=== PATIENT | female | born 1980 | race Caucasian/White ===

== ENCOUNTER 2017-05-29 18:18 | Observation (INO) ==
[2017-05-29] MEDS ORDERED: SALINE FLUSH 10ml SYRINGE IVF PRN (18:30)
--- OUTSIDE RECORDS SUMMARY | 2017-05-29 19:30 | External Medical Summary ---
:1980 Author Organization [facility] Address [address], [place] [address] Care Team Providers Name Role Phone Anya Moss Unavailable Unavailable PROBLEMS Unknown Problems ALLERGIES Unknown Allergies SOCIAL HISTORY No smoking Hx information available PLAN OF CARE VITAL SIGNS MEDICATIONS Unknown Medications RESULTS No Results PROCEDURES No Known procedures IMMUNIZATIONS No Known Immunizations
--- OUTSIDE RECORDS SUMMARY | 2017-05-29 19:30 | External Medical Summary ---
:1980 Author Organization [facility] Address [address] [place] [address] Care Team Providers Name Role Phone Murphy Luiz Unavailable Unavailable PROBLEMS Type Condition ICD9-CM Code [id number] Code Onset Condition SNOMED Code Dates Status Problem Moderate episode F33.1 Active 397890651 of recurrent major depressive disorder Problem Anxiety F41.9 Active [id number] ALLERGIES Unknown Allergies SOCIAL HISTORY No smoking Hx information available PLAN OF CARE VITAL SIGNS MEDICATIONS Unknown Medications RESULTS No Results PROCEDURES No Known procedures IMMUNIZATIONS No Known Immunizations
--- OUTSIDE RECORDS SUMMARY | 2017-05-29 19:30 | External Medical Summary ---
:1980 Author Organization [facility] Address [address] [place] [address] Care Team Providers Name Role Phone Murphy Luiz Unavailable Unavailable PROBLEMS Type Condition ICD9-CM Code [id number] Code Onset Condition SNOMED Code Dates Status Problem Moderate episode F33.1 Active 707444384 of recurrent major depressive disorder Problem Anxiety F41.9 Active 17728523 ALLERGIES Unknown Allergies SOCIAL HISTORY No smoking Hx information available PLAN OF CARE VITAL SIGNS MEDICATIONS Unknown Medications RESULTS No Results PROCEDURES No Known procedures IMMUNIZATIONS No Known Immunizations
--- OUTSIDE RECORDS SUMMARY | 2017-05-29 19:30 | External Medical Summary ---
:1980 Author Organization [facility] Address [address], [place] [id number] Care Team Providers Name Role Phone Anya Moss Unavailable Unavailable PROBLEMS Unknown Problems ALLERGIES Unknown Allergies SOCIAL HISTORY No smoking Hx information available PLAN OF CARE VITAL SIGNS MEDICATIONS Unknown Medications RESULTS No Results PROCEDURES No Known procedures IMMUNIZATIONS No Known Immunizations
--- OUTSIDE RECORDS SUMMARY | 2017-05-29 19:30 | External Medical Summary ---
:1980 Author Organization [employer] Care Team Providers Name Role Celestino Collins Provider Role Unavailable Allergies No Known Allergies Problems No Known Problems Medications No Known Medications Results No Known Results Summary Purpose [employer] Submission
--- OUTSIDE RECORDS SUMMARY | 2017-05-29 19:30 | External Medical Summary ---
:1980 Author Organization [employer] Care Team Providers Name Role Celestino Collins Provider Role Unavailable Allergies, Adverse Reactions, Alerts Substance Reaction Event Type N.K.D.A. Info Not Available Non Drug Allergy Problems Problem Type Condition Code Onset Dates Condition Status Assessment Generalized anxiety disorder F41.1 Active Assessment Panic disorder with agoraphobia F40.01 Active Assessment Major depressive disorder, recurrent F33.1 Active episode, moderate Medications Medication Code System Code Instructions Start End Date Status Dosage Date Xanax NDC 93514-76 2 MG Orally Two 1 tablet 94-01 times daily Ambien CR NDC 88705-44 12.5 MG Orally 1 tablet at 21-31 Once a day bedtime as needed Hydrocodone-Matt NDC 69299-31 10-500 MG Orally 1 tablet as taminophen 72-10 Two times daily needed Effexor NDC 0 37.5 MG Orally 1 tablet Twice a day with food Duloxetine HCl NDC 74478-79 30 MG Orally Mar 29, capsule 43-56 once a day 2015 Procedures Procedure Coding System Code Date Office Visit, New Pt., Level 5 CPT-4 04549 Mar 29, 2016 Vital Signs Date/Time: Mar 29, 2016 Blood Pressure Systolic 133 mm Hg Weight 147.6 lbs Height 64 in BMI 25.33 Index Cardiac Monitoring Heart Rate 80 /min Blood Pressure Diastolic 87 mm Hg Results No Known Results Summary Purpose [employer] Submission
--- OUTSIDE RECORDS SUMMARY | 2017-05-29 19:30 | External Medical Summary | Referral Summary ---
:[address] [facility] Address [address] [place] [address] Care Team Providers Name Role Phone Ina Brady Primary Care Physician Encounter [facility] [id number] Date(s): 12/24/15 - 12/24/[address] [facility] [address], [place] [address] Discharge Diagnosis: Acute sciatica Discharge Diagnosis: Low back pain Discharge Disposition: 01-Home or Self Care Attending Physician: Kevin Kaba DO Admitting Physician: Kevin Kaba DO Vital Signs Most recent to oldest [Reference Range]: 1 Temperature Oral [35.8-37.3 degC] 37.3 degC (12/24/15 3:25 PM) Peripheral Pulse Rate [60-100 bpm] 87 bpm (12/24/15 4:34 PM) Respiratory Rate [14-20 br/min] 18 br/min (12/24/15 4:34 PM) Blood Pressure [90-140/60-90 mmHg] 120/88 mmHg (12/24/15 4:34 PM) SpO2 100 % (12/24/15 4:34 PM) Problem List Condition Effective Dates Status Health Status Informant Depression(Confirmed) Active patient Hypertension(Confirmed) Active patient Allergies, Adverse Reactions, Alerts No Known Allergies Medications hydrochlorothiazide Oral, Daily, 0 Refill(s) Start Date: 03/12/14 Status: OrderedNaprosyn 500 mg oral tablet 1 tabs, Oral, BID, as needed for pain, # 10 tabs, 0 Refill(s) Start Date: 03/12/14 Status: OrderedoxyCODONE-acetaminophen 5 mg-325 mg oral tablet 1 tabs, Oral, q6hr, Pain, X 3 days, # 12 tabs, 0 Refill(s) Start Date: 12/24/15 Stop Date: 12/27/15 Status: OrderedValium 5 mg oral tablet 5 mg 1 tabs, Oral, TID, Muscle Spasm, X 4 days, # 12 tabs, 0 Refill(s) Start Date: 12/24/15 Stop Date: 12/28/15 Status: Ordered Results No data available for this section Immunizations No data available for this section Procedures Procedure Date Related Diagnosis Body Site Hysterectomy Social History Social History Type Response Smoking Status Never smoker Assessment and Plan No data available for this section
--- OUTSIDE RECORDS SUMMARY | 2017-05-29 19:30 | External Medical Summary | Referral Summary ---
:1980 Author Organization [facility] Address [address] [place] [address] Care Team Providers Name Role Phone Ina Brady Primary Care Physician Encounter VC Date(s): 12/25/15 - 12/27/15 [facility] [address], [place] [address] Discharge Disposition: 01-Home or Self Care Attending Physician: Lee Lafleur MD Admitting Physician: Lee Lafleur MD Referring Physician: No PCP, Pt States Vital Signs Most recent to oldest [Reference Range]: 1 Temperature Oral [35.8-37.3 degC] 38.4 degC *HI* (12/25/15 10:49 PM) Temperature Temporal Artery [36.3-37.8 degC] 36.8 degC (12/27/15 11:00 AM) Peripheral Pulse Rate [60-100 bpm] 77 bpm (12/26/15 8:03 PM) Heart Rate Monitored [60-100 bpm] 77 bpm (12/27/15 11:00 AM) Respiratory Rate [14-20 br/min] 13 br/min *LOW* (12/27/15 11:00 AM) Blood Pressure [90-140/60-90 mmHg] 105/63 mmHg (12/27/15 11:00 AM) Mean Arterial Pressure, Cuff 87 mmHg (12/27/15 3:00 AM) SpO2 94 % (12/27/15 11:00 AM) Remote Telemetry Initiated (12/25/15 10:49 PM) Problem List Condition Effective Dates Status Health Status Informant Acute pain(Confirmed) Active Depression(Confirmed) Active patient Hypertension(Confirmed) Active patient Ineffective coping Active (individual)(Confirmed)1 1Problem added automatically by system based on initiation of Ineffective Coping Plan of Care Allergies, Adverse Reactions, Alerts No Known Allergies Medications ALPRAZolam 1 mg oral tablet 1 mg 1 tabs, Oral, Bedtime (once a day), 0 Refill(s) Start Date: 12/25/15 Status: Orderedesomeprazole 40 mg, Oral, Daily, 0 Refill(s) Start Date: 12/25/15 Status: Orderedferrous sulfate 325 mg (65 mg elemental iron) oral delayed release tablet 325 mg 1 tabs, Oral, TID, # 90 tabs, 0 Refill(s), other reason (Rx) Start Date: 12/27/15 Status: AywhvlnDdn-A-Phg Women 1 tabs, Oral, Daily, 0 Refill(s) Start Date: 12/25/15 Status: OrderedPercocet 10/325 oral tablet 1 tabs, Oral, q4hr, Pain Moderate (4-6), 0 Refill(s) Start Date: 12/27/15 Status: OrderedPristiq 100 mg oral tablet, extended release 100 mg 1 tabs, Oral, Daily, 0 Refill(s) Start Date: 12/25/15 Status: OrderedValium 5 mg oral tablet 5 mg 1 tabs, Oral, TID, Muscle Spasm, X 4 days, # 12 tabs, 0 Refill(s) Start Date: 12/24/15 Stop Date: 12/28/15 Status: Orderedzolpidem 10 mg, Oral, Bedtime (once a day), as needed for sleep, 0 Refill(s) Start Date: 12/25/15 Status: Ordered Results Hematology Most recent to oldest [Reference Range]: 1 WBC [4.8-10.8 10*3/uL] 3.8 10*3/uL *LOW* (12/27/15 3:57 AM) RBC [4.00-5.20] 3.03 *LOW* (12/27/15 3:57 AM) Hgb [12.0-16.0 gm/dL] 8.0 gm/dL *LOW* (12/27/15 3:57 AM) Hct [37.0-47.0 %] 26.4 % *LOW* (12/27/15 3:57 AM) MCV [82.0-99.0 fL] 87.1 fL (12/27/15 3:57 AM) MCH [27.0-32.0 pg] 26.4 pg *LOW* (12/27/15 3:57 AM) MCHC [32.0-36.0 gm/dL] 30.3 gm/dL *LOW* (12/27/15 3:57 AM) RDW [11.5-14.5 %] 17.0 % *HI* (12/27/15 3:57 AM) Platelet [150-400 10*3/uL] 219 10*3/uL (12/27/15 3:57 AM) MPV [9.4-12.4 fL] 10.5 fL (12/27/15 3:57 AM) Immature Granulocytes [0.0-1.0 %] 0.1 % (12/26/15 6:01 AM) Neutrophils [51-75 %] 63 % (12/26/15 6:01 AM) Lymphocytes [20-46 %] 25 % (12/26/15 6:01 AM) Monocytes [4-11 %] 9 % (12/26/15 6:01 AM) Eosinophils [0-4 %] 3 % (12/26/15 6:01 AM) Basophils [0-2 %] 0 % (12/26/15 6:01 AM) Neutro Absolute [1.90-7.00 10*3] 4.26 10*3 (12/26/15 6:01 AM) Lymph Absolute [0.80-3.30 10*3] 1.66 10*3 (12/26/15 6:01 AM) [place] Absolute [0.30-1.00 10*3] 0.62 10*3 (12/26/15 6:01 AM) Eos Absolute [0.00-0.50 10*3] 0.18 10*3 (12/26/15 6:01 AM) Baso Absolute [0.00-0.20 10*3] 0.01 10*3 (12/26/15 6:01 AM) Reticulocyte [0.6-2.5 %] 1.3 % (12/25/15 6:09 PM) Sed Rate [0-23] 13 (12/25/15 6:09 PM) Chemistry Most recent to oldest [Reference Range]: 1 Sodium Lvl [136-144 mEq/L] 141 mEq/L (12/27/15 3:57 AM) Potassium Lvl [3.6-5.1 mEq/L] 4.2 mEq/L (12/27/15 3:57 AM) Chloride [99-109 mEq/L] 117 mEq/L *HI* (12/27/15 3:57 AM) CO2 [22-32 mEq/L] 22 mEq/L (12/27/15 3:57 AM) AGAP [3-20] 2 *LOW* (12/27/15 3:57 AM) BUN [4-20 mg/dL] 5 mg/dL (12/27/15 3:57 AM) Glucose Lvl [70-100 mg/dL] 85 mg/dL (12/27/15 3:57 AM) Creatinine Lvl [0.44-1.03 mg/dL] 0.38 mg/dL *LOW* (12/27/15 3:57 AM) eGFR [>60] >60 1 (12/27/15 3:57 AM) Calcium Lvl [8.6-10.0 mg/dL] 7.6 mg/dL *LOW* (12/27/15 3:57 AM) Albumin Lvl [3.5-4.8 gm/dL] 2.1 gm/dL *LOW* (12/27/15 3:57 AM) Total Protein [6.1-7.9 gm/dL] 4.2 gm/dL *LOW* (12/26/15 6:01 AM) Globulin [1.9-4.3 gm/dL] 2.0 gm/dL (12/26/15 6:01 AM) ALT [14-54 U/L] 44 U/L (12/26/15 6:01 AM) AST [15-41 U/L] 69 U/L *HI* (12/26/15 6:01 AM) Alk Phos [26-104 U/L] 63 U/L (12/26/15 6:01 AM) Bili Total [0.2-1.2 mg/dL] 0.4 mg/dL 2 (12/26/15 6:01 AM) Iron [50-170 mcg/dL] 18 mcg/dL *LOW* (12/25/15 11:59 PM) TIBC [286-569 mcg/dL] 252 mcg/dL *LOW* (12/25/15 11:59 PM) Iron Sat 7 % (12/25/15 11:59 PM) Transferrin [192-382 mg/dL] 169 mg/dL *LOW* (12/25/15 11:59 PM) Ferritin Lvl [11-307 ng/mL] 11 ng/mL (12/25/15 6:09 PM) Magnesium Lvl [1.8-2.5 mg/dL] 1.9 mg/dL (12/27/15 3:57 AM) Phosphorus [2.4-4.7 mg/dL] 2.6 mg/dL 3 (12/27/15 3:57 AM) Calcium Ionized [1.19-1.41 mmol/L] 1.17 mmol/L *LOW* (12/26/15 6:01 AM) Total CK [38-234 U/L] 1862 U/L *HI* (12/27/15 3:57 AM) Prealbumin [18-38 mg/dL] 11 mg/dL *LOW* (12/25/15 11:59 PM) Vitamin B12 Lvl [213-816 pg/mL] 266 pg/mL (12/25/15 6:09 PM) Folate Lvl [7.0-31.4 ng/mL] 14.0 ng/mL (12/25/15 6:09 PM) Chol [0-200 mg/dL] 117 mg/dL (12/27/15 3:57 AM) Trig [0-150 mg/dL] 58 mg/dL (12/27/15 3:57 AM) HDL [>40 mg/dL] 37 mg/dL *ABN* (12/27/15 3:57 AM) LDL [0-100 mg/dL] 68 mg/dL (12/27/15 3:57 AM) VLDL Cholesterol [0-30 mg/dL] 12 mg/dL (12/27/15 3:57 AM) Cardiac Risk [0.0-5.0] 3.2 (12/27/15 3:57 AM) Hep A IgM Negative (12/27/15 3:57 AM) Hep Bs Ag Negative (12/27/15 3:57 AM) Hep C Ab Negative (12/27/15 3:57 AM) Hep B Core IgM Negative (12/27/15 3:57 AM) TSH with Reflex Free T4 [0.35-5.50] 4.00 (12/25/15 6:09 PM) 1Result Comment: Multiply eGFR results by 1.21 for race.2Result Comment: Naproxen, specifically the metabolite O-desmethylnaproxen, may cause spurious elevation in Total Bilirubin levels.3Result Comment: High dosages of liposomal Amphotericin B (AmBisome) therapy or other drug preparations that use a liposomal envelope to facilitate drug delivery may cause falsely elevated results for phosphorus.Toxicology Most recent to oldest [Reference Range]: 1 Ethanol Lvl Not Detected (12/25/15 11:59 PM) U Amphetamine Scrn Negative (12/25/15 6:09 PM) U Cocaine Scrn Negative (12/25/15 6:09 PM) U Cannab Scrn Negative (12/25/15 6:09 PM) U Opiate Scrn Positive *ABN* (12/25/15 6:09 PM) U PCP Scrn Negative (12/25/15 6:09 PM) U Benzodiazepine Scrn Positive *ABN* (12/25/15 6:09 PM) U Barbiturate Scrn Negative (12/25/15 6:09 PM) Methadone Lvl Negative (12/25/15 6:09 PM) Tricyclics Positive 1 *ABN* (12/25/15 6:09 PM) 1Result Comment: Cut-off concentrations: Amphetamines: 1000 ng/mL Cocaine: 300 ng/mL Cannabinoid: 50 ng/mL Opiate: 300 ng/mL Phencyclidine (PCP): 25 ng/mL Benzodiazepine: 200 ng/mL Barbiturate: 200 ng/mL Methadone: 300 ng/mL Tricyclic: 300 ng/mL The urine drug screen assays are qualitative screens. A more specific GC/MS method must be performed to obtain a confirmed analytical result. Unconfirmed screening results must not be used for non-medical purposes(e.g. employment or legal testing)Urinalysis Most recent to oldest [Reference Range]: 1 UA Color Yellow (12/25/15 6:09 PM) UA Appear Cloudy *ABN* (12/25/15 6:09 PM) UA pH [5.0-8.0] 5.0 (12/25/15 6:09 PM) UA Leuk Est [Negative] Negative (12/25/15 6:09 PM) UA Nitrite [Negative] Negative (12/25/15 6:09 PM) UA Protein [Negative] Negative (12/25/15 6:09 PM) UA Glucose [Negative] Negative (12/25/15 6:09 PM) UA Ketones [Negative] Negative (12/25/15 6:09 PM) UA Urobilinogen [<1.0 mg/dL] 2.0 mg/dL *ABN* (12/25/15 6:09 PM) UA Bili [Negative] Negative (12/25/15 6:09 PM) UA Blood [Negative] Negative (12/25/15 6:09 PM) UA Spec Grav [1.003-1.030] 1.030 (12/25/15 6:09 PM) Type Clean Catch (12/25/15 6:09 PM) Microbiology Reports TEST:Respiratory Virus Panel - PCR STATUS:Auth (Verified) BODY SITE: SOURCE:Nasopharyngeal Swab COLLECTED DATE/TIME:12/26/15 12:45 AMRespiratory Virus Panel - PCR Rhinovirus Positive by PCR . Specimen tested for the following FDA approved viral targets: Influenza A, Influenza A subtype H1, Influenza A subtype H3, Influenza A 2009 H1N1, Influenza B, Respiratory Syncytial Virus subtype A, Respiratory Syncytial Virus subtype B, Adenovirus B/E, Adenovirus C, Rhinovirus, Parainfluenza virus 1, Parainfluenza virus 2, Parainfluenza virus 3, and Human Metapneumovirus. . The following viral targets were also tested. Although not FDA approved, these targets have been validated by our laboratory for clinical diagnosis: Parainfluenza virus 4, Coronavirus 229E, Coronavirus NL63, Coronavirus HKU1, and Coronavirus OC43. ORGANISM:Rhinovirus Immunizations No data available for this section Procedures Procedure Date Related Diagnosis Body Site Breast reduction, bilateral Cholecystectomy; Hysterectomy Social History Social History Type Response Smoking Status Never smoker Assessment and Plan No data available for this section
--- OUTSIDE RECORDS SUMMARY | 2017-05-29 19:30 | External Medical Summary ---
:1980 Author Organization [facility] Address [address] [place] [address] Care Team Providers Name Role Phone Saira Reardon Unavailable Unavailable PROBLEMS Unknown Problems ALLERGIES Unknown Allergies SOCIAL HISTORY No smoking Hx information available PLAN OF CARE VITAL SIGNS MEDICATIONS Medication Instructions Dosage Frequency Start End Date Duration Status Date Temazepam 15 Orally Once a 1-2 capsules 24h 27 Jan, Active MG day at bedtime 2016 as needed RESULTS No Results PROCEDURES No Known procedures IMMUNIZATIONS No Known Immunizations
--- OUTSIDE RECORDS SUMMARY | 2017-05-29 19:30 | External Medical Summary ---
:1980 Author Organization [facility] Address [address] [place] [address] Care Team Providers Name Role Phone Luiz Arrington Unavailable Unavailable PROBLEMS Type Condition ICD9-CM Code [id number] Code Onset Condition SNOMED Code Dates Status Problem Moderate episode F33.1 Active 692610022 of recurrent major depressive disorder Problem Anxiety F41.9 Active [id number] ALLERGIES Substance Reaction Event Type Date Status N.K.D.A. Unknown Non Drug Allergy Mar, Unknown SOCIAL HISTORY No smoking Hx information available PLAN OF CARE Activity Details Follow Up 4 Weeks Reason:anxiety/back pain VITAL SIGNS Temperature 98.2 degrees Fahrenheit 2017-03-18 Height 63.0 in 2017-03-18 Weight 138.8 lbs 2017-03-18 Oximetry 94% RA/rest % 2017-03-18 BMI 24.58 kg/m2 2017-03-18 Blood pressure systolic 90 mm Hg 2017-03-18 Blood pressure diastolic 62 mm Hg 2017-03-18 MEDICATIONS Medication Instructions Dosage Frequency Start End Duration Status Date Date Lorazepam 2 MG Orally BID prn 1 tablet Active prn Diclofenac Sodium Orally Once a 1 tablet 24h Mar, days Active ER 100 mg day with food 2017 or milk Rexulti 1 MG Orally Once a 1 tablet 24h Active day Pristiq 100 MG Orally Once a 1 tablet 24h Active day Gabapentin 300 MG Orally QHS x 3 1 capsule Mar, days Active days then BID 2017 Omeprazole 40 MG Orally Once a 1 capsule 24h Active day Cyclobenzaprine HCl Orally Three 1 tablet 8h Mar, Active 10 mg times a day as needed 2016 RESULTS No Results PROCEDURES Procedure Date Ordered Related Diagnosis Body Site Office Visit, New Pt., Level 3 Mar 18, 2017 IMMUNIZATIONS No Known Immunizations
--- OUTSIDE RECORDS SUMMARY | 2017-05-29 19:31 | External Medical Summary | Continuity of Care Document ---
:1980 Demographics Phone Unavailable Preferred Language Unknown Marital Status Unknown Pentecostalism Affiliation Unknown Race Unknown Ethnic Group Unknown Author Organization [facility] Active Description Code Type Severity Reaction Onset Reported/ Identified Relationship Clinical to Patient Status Yes No Known No Drug Unknown NONE 02/05/2014 Drug Known Aller Intolerances Drug gy Intol eranc es Yes No Known No Drug Unknown NONE 02/26/2017 Drug Known Aller Intolerances Drug gy Intol eranc es Medications Problems Date Dx Attending Type Code Diagnosis Diagnosed By Coded 05/29/2012 Final 571.8 CHRONIC LIVER DIS NEC 05/29/2012 Final 593.9 RENAL/URETER DISORD NOS 05/29/2012 724.5 BACKACHE NOS 05/29/2012 Admitting 789.00 ABDOMINAL PAIN-SITE NOS 05/29/2012 Final V45.86 BARIATRIC SURG STATUS Procedures Code Description Performed By Performed On Sarah Brock MD 09/17/2012 17.42 LAPAROSCOPIC ROBOTIC ASSISTED PROCEDURE Sarah Brock MD 09/17/2012 57.32 CYSTOSCOPY NEC OTH Sarah Brock MD 09/17/2012 65.25 LAPAROSCOP LOCAL EXCIS/DESTRUCT OVARY Sarah Brock MD 09/17/2012 68.41 LAPAROSCOPIC TOTAL ABDOMINAL HYSTERECTOMY Encounters ACCT No. Visit Discharge Status Pt. Type Provider Facility Loc./Unit Complaint Date/Time [id number] 05/29/2012 05/29/2012 CLS Outpatie 21 13:45:00 23:59:59 nt [id number] 02/16/2017 02/16/2017 DIS Emergenc Wilder Osorio MDALCIRA 997 15:23:00 18:27:00 y [facility] [id number] 06/27/2016 06/27/2016 DIS Emergenc Wilder King DOEDS 265 02:40:00 03:50:00 y [facility] [id number] 06/26/2016 06/26/2016 DIS Emergenc Wilder Campbell MDALCIRA 195 19:19:00 21:46:00 y [facility] [id number] 12/24/2015 12/24/2015 DIS Emergenc Wilder Tubbs DOEDS 754 11:12:00 13:10:00 y [facility] [id number] 11/13/2015 11/13/2015 DIS Outpatie Harrisonanastacia Wilder XIE 793 08:38:00 11:36:00 [facility] [id number] 10/27/2015 10/27/[address] [facility] Wilder 447 10:00:00 10:00:00 [facility] [id number] 09/07/2015 09/08/2015 DIS Emergenc Wilder Tubbs DOALCIRA 908 19:36:00 00:30:00 y [facility] [id number] 08/11/2015 08/11/2015 DIS Emergenc Wilder Osorio MD, W.EDE 908 21:11:00 23:18:00 y [facility] [id number] 09/25/2012 09/25/2012 DIS Emergenc Angela AguayoALCIRA 434 17:43:00 18:15:00 y Debra ACUNA [facility] [id number] 09/17/2012 09/17/2012 Wilder Ott MDOPRA 756 05:08:00 19:04:00 [facility] [id number] 09/10/2012 09/10/2012 Wilder Ott MDPOA 554 08:05:00 08:05:00 [facility] [id number] 05/21/2017 Document 066 23:59:00 Registra tion [id number] 02/26/2017 02/26/2017 DIS Emergenc Wilder Zurita MDED 355 19:23:00 20:00:00 y [facility] [id number] 01/10/2017 01/10/2017 DIS Emergenc Wilder Zurita MDED 066 20:41:00 21:55:00 y [facility] [id number] 01/08/2017 01/08/2017 DIS Emergenc Wilder Zurita MD, E.ED 792 19:34:00 21:02:00 y [facility] [id number] 07/24/2015 07/25/2015 DIS Emergenc Parminder ACUNA, Wilder WetzelED 676 22:57:00 00:28:00 y Karlos Avina [facility]
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
[2017-05-29] MEDS ORDERED: NS 1,000 ML IV ONE (22:51)
--- NOTE | 2017-05-29 23:08 | History & Physical Report ---
History of Present Illness Date: 05/29/17 [facility] Patient Stated Medical History Anemia Yes Depression Yes Substance Use Disorder Yes: [facility] Medical History (Last Reviewed 02/10/17 @ 15:04 by SHAHIDA Pacheco) Depression (Chronic Medical) Anxiety (Chronic Medical) GERD (gastroesophageal reflux disease) (Chronic Medical) Surgical History: Cholecystectomy- 1998. Partial Hysterectomy- 2015. Breast Reduction- 2011 Family History: Family History (Last Reviewed 02/10/17 @ 15:04 by SHAHIDA Pacheco) Father Colon cancer Brother Heart failure - Social History Smoking status: Never smoker Medications Home Medications Medication Instructions Recorded Confirmed Type Pristiq (desvenlafaxine succinate 100 mg PO DAILY 02/10/17 05/29/17 History ER) 100 mg tablet,extended release 24 hr ALPRAZolam [Xanax] 1 mg PO HS 05/29/17 05/29/17 History Buprenorphine HCl/Naloxone HCl 1 each SL BID 05/29/17 05/29/17 History [Suboxone 4 mg-1 mg Sl Film] Buspirone [Buspar] 5 mg PO BID 05/29/17 05/29/17 History Docusate Sodium [Colace] 100 mg PO BID 05/29/17 05/29/17 History LORazepam [Ativan] 2 mg PO TID 05/29/17 05/29/17 History Allergies Allergy/AdvReac Type Severity Reaction Status Date / Time No Known Allergies Allergy Verified 05/29/17 19:22 Exam Vital Signs: Temperature 97.4 F 05/29/17 18:20 Pulse Rate 76 05/29/17 21:16 Respiratory Rate 18 05/29/17 21:16 Blood Pressure 122/77 05/29/17 21:00 Pulse Oximetry 97 05/29/17 21:16 Height/Weight/BMI: Height 1.6 m Weight 64.5 kg Results - Labs CBC & Chem 7: 05/29/17 19:24 05/29/17 19:24 Microbiology Results: Microbiology 05/29/17 19:30 Urine, Voided (Cc/notcc) Urine Culture - Preliminary Culture Initiated - Results Pending Assessment and Plan (1) Benzodiazepine (tranquilizer) overdose Current visit: Yes Status: Acute (2) Benzodiazepine abuse Current visit: Yes Status: Acute (3) Acute encephalopathy Current visit: Yes Status: Acute (4) Depression Current visit: No Status: Chronic (5) Anxiety Current visit: No Status: Chronic (6) GERD (gastroesophageal reflux disease) Current visit: No Status: Chronic Hospital Course Summary Disclaimer: The visit summary below is not to be considered part of the above Progress Note.
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
[2017-05-29] MEDS ORDERED: ONDANSETRON 4 MG/2 ML INJECTION IVP PRN (23:27)
[2017-05-29] MEDS ORDERED: POTASSIUM CHLORIDE INJ 20 MEQ in D5-1/2NS 1,000 ML IV SCH (23:27)
--- NOTE | 2017-05-30 08:42 | XRay Report ---
Indication: Clearance Procedure: XR chest 1V: Encounter: Initial Comparison: None Technique: A single portable AP chest radiograph was obtained. Findings: Lungs and airways: Normal lung volumes. No focal airspace consolidation. Normal pulmonary vasculature. Pleura: No pleural effusion or pneumothorax. Heart and mediastinum: The cardiomediastinal silhouette and great vessels are within normal limits. Osseous structures and soft tissues: No acute osseous abnormality is seen. Impression: No acute cardiopulmonary process. .
[2017-05-30] MEDS ORDERED: [UNRECOGNIZED DRUG - OTHER] IV SCH (09:30)
[2017-05-30] MEDS ORDERED: KCL IV SCH (09:30)
[2017-05-30] MEDS ORDERED: D5 IV SCH (09:30)
[2017-05-30 14:02] VITALS: BMI 26.0
[2017-05-30 15:40] VITALS: BP 146/89; RESP 18; TEMP 96.6; O2SAT 100
[2017-05-30 17:01] VITALS: PULSE 65
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
== END 2017-05-30 18:43 | disposition home or self-care (01) ==
LOC: MED 18:18 → ED 18:18 → MED 23:25
PROVIDERS: ADMIT Pediatrics; ATTEND Pediatrics